=== PATIENT | female | born 1985 | race Caucasian/White ===

== ENCOUNTER 2019-09-29 19:01 | Emergency (ER) | payer OTHER, SELFPAY ==
[2019-09-29 19:07] VITALS: BP 127/67; PULSE 65; RESP 20; TEMP 36.8; O2SAT 99
--- NOTE | 2019-09-29 19:15 | ED.FEMALEGU ---
HPI - Female Genitourinary General Chief complaint: Urogenital-Female Stated complaint: Chills/nausea/burning with urination Time Seen by Provider: 09/29/19 19:16 Source: patient and RN notes reviewed History of Present Illness HPI Narrative: Patient is a 34-year-old female who presents the urgent care with complaints of a possible UTI. Patient states that for the last 48 hours she has had dysuria, frequency, urgency, chills and low back pain. Patient states that she is 6 weeks postop a and is currently breast-feeding. Patient denies of any known fevers or abdominal pain. No other acute complaints. No acute distress noted. Patient read the plan of care. Related Data Home Medications Medication Instructions Recorded Confirmed [id number] fumarate-FA 1 tablet PO DAILY 03/02/19 09/29/19 [] sertraline [Zoloft] 100 mg PO DAILY 03/02/19 09/29/19 Iron 09/29/19 docusate sodium [Colace] 100 mg PO BID 09/29/19 09/29/19 Allergies Allergy/AdvReac Type Severity Reaction Status Date / Time tramadol Allergy Redness of Verified 09/29/19 19:20 Skin Review of Systems Review of Systems: Narrative: CONSTITUTIONAL: Reports of chills without known fever EYES: Denies visual changes, redness, or discharge. ENT: Denies rhinorrhea, congestion, sore throat, or otalgia. CARDIOVASCULAR: Denies chest pain, palpitations, or edema. RESPIRATORY: Denies cough or dyspnea. GASTROINTESTINAL: Reports of nausea and 1 episode of vomiting at our facility GENITOURINARY: Reports of dysuria, urgency, frequency SKIN: Denies rash or itching. MUSCULOSKELETAL: Reports of low back pain NEUROLOGIC: Denies headache, numbness, or weakness. All other systems reviewed are negative, except as documented in HPI. PMFSH Comments At the time of my signature, I reviewed and agree with the nursing past medical, surgical, social, and family history. There is no relevant family history pertinent to the patient complaint. Exam Narrative: Exam Narrative: GENERAL: This is a well-nourished, well-developed patient, in no apparent distress. HEAD: normocephalic, atraumatic. EYES: PERRL. Sclera clear/white. Vision is grossly intact. EARS: External ears normal NOSE: External nose normal with no obvious nasal discharge, nares without redness, no rhinorrhea. THROAT: Mucous membranes moist NECK: Neck supple GASTROINTESTINAL: Abdomen soft, mild suprapubic tenderness, nondistended. SKIN: scar approximated and intact without any drainage or surrounding erythema. Warm, intact with no suspicious lesions or rash, good texture and turgor. NEURO: awake, alert, and oriented to person, place and time. There were no obvious focal neurologic abnormalities. EXTREMITIES: No clubbing, cyanosis, or edema. No joint tenderness, effusion, or edema noted. No calf tenderness. Negative Homans sign bilaterally. BACK: Mild bilateral CVA tenderness Course Vital Signs Vital signs: Vital Signs Temperature 98.3 F 09/29/19 19:07 Pulse Rate 65 09/29/19 19:07 Respiratory Rate 20 09/29/19 19:07 Blood Pressure 127/67 09/29/19 19:07 Pulse Oximetry 99 09/29/19 19:07 Temperature 98.3 F 09/29/19 19:07 Pulse Rate 65 09/29/19 19:07 Respiratory Rate 20 09/29/19 19:07 Blood Pressure 127/67 09/29/19 19:07 Pulse Oximetry 99 09/29/19 19:07 Reviewed MDM - Female Genitourinary MDM Narrative Medical decision making narrative: Reviewed lab results with the patient. She is aware that urine analysis does show a urinary tract infection. Advised the patient to increase water intake and avoid sugary and caffeinated drinks. Complete oral antibiotic regimen as prescribed. Antibiotic is generally safe in breast-feeding however you may discuss treatment with your [employer] or pharmacy prior to medication administration, if you wish. Make sure to eat and drink with the medication. Use Tylenol as needed. Use Zofran as needed for nausea and take 15 minutes prio
== END 2019-09-29 19:29 | disposition home or self-care (01) ==
PROVIDERS: Emergency Provider Nurse Practitioner Family; PCP Family Medicine
DX: N39.0 Urinary tract infection, site not specified (principal)
CPT/HCPCS: 81003; 87077; 87086; 87088; 87186; 99213; G0463

== ENCOUNTER 2019-11-23 11:19 | Emergency (ER) | payer OTHER, SELFPAY ==
[2019-11-23 11:22] VITALS: BP 111/54; PULSE 80; RESP 20; TEMP 36.7; O2SAT 100
--- NOTE | 2019-11-23 11:33 | ED.DENTAL ---
HPI - Dental/Oral General Chief complaint: Dental/Oral Stated complaint: tooth pain Time Seen by Provider: 11/23/19 11:35 Source: patient History of Present Illness HPI Narrative: Patient presents with dental pain to the right upper side of her mouth. Patient states she has appointment with [facility] school of dentist later on in the month. Patient states she is taken ibuprofen and Tylenol for pain with minimal relief. Patient states she is able to open her mouth fully and no trouble swallowing. NO FEVER. NO JAW SWELLING. NO NECK SWELLING. NO LIMITATION WITH SPEAKING OR SWALLOWING. HAS A HISTORY OF DENTAL CARIES. HAS NOT SEEN A DENTIST RECENTLY. Teeth map: 1. 2. swelling tenderness Related Data Home Medications Medication Instructions Recorded Confirmed sertraline [Zoloft] 100 mg PO DAILY 03/02/19 11/23/19 Allergies Allergy/AdvReac Type Severity Reaction Status Date / Time tramadol Allergy Redness of Verified 11/23/19 11:30 Skin Review of Systems Review of Systems: Narrative: CONSTITUTIONAL: Denies fever, chills, or sweats. EYES: Denies visual changes, redness, or discharge. ENT: Denies rhinorrhea, congestion, sore throat, or otalgia. NO FEVER. NO JAW SWELLING. NO NECK SWELLING. NO LIMITATION WITH SPEAKING OR SWALLOWING. HAS A HISTORY OF DENTAL CARIES. HAS NOT SEEN A DENTIST RECENTLY. CARDIOVASCULAR: Denies chest pain, palpitations, or edema. RESPIRATORY: Denies cough or dyspnea. GASTROINTESTINAL: Denies abdominal pain, nausea, vomiting, or diarrhea. GENITOURINARY: Denies dysuria or hematuria. SKIN: Denies rash or itching. MUSCULOSKELETAL: Denies back pain, joint pain, or myalgia. NEUROLOGIC: Denies headache, numbness, or weakness. PSYCHIATRIC: Denies anxiety or depression. PMFSH Comments At time of signature, agree with nursing past medical, surgical, social and family history. There is no relevant family history pertinent to the presenting complaint Exam Narrative: Exam Narrative: GENERAL: Well-appearing, well-nourished, and in no acute distress. HEAD: Normocephalic, atraumatic. EYES: PERRLA and EOMI. ENT: Nares clear, no rhinorrhea or epistaxis. Mucous membranes moist. NO ODILON APICAL SWELLING, TOOTH TENDER TO PALPATION. NO FACIAL SWELLING. NO TRISMUS. ABLE TO OPEN MOUTH FULLY. NO NECK SWELLING OR MISAEL'S ANGINA. NO ABSCESS TO BE DRAINED. no drooling, trismus, facial asymmetry or significant neck swelling NECK: Supple. CHEST: Clear to auscultation. No respiratory distress. HEART: Regular rate and rhythm. No murmur heard. Normal peripheral pulses. ABDOMEN: Soft, nontender, nondistended, normal active bowel sounds. EXTREMITIES: Normal range of motion. No edema. SKIN: Warm, dry, no rash. NEURO: No focal deficits. Alert and oriented x3. Nadir Coma Scale Eye Opening: Spontaneous 4 Nadir Coma Scale Motor: Obeys Commands 6 [place] Coma Scale Verbal: Oriented 5 [place] Coma Scale Total 15 Course Vital Signs Vital signs: Vital Signs Temperature 36.7 C 11/23/19 11:22 Pulse Rate 80 11/23/19 11:22 Respiratory Rate 11/23/19 11:22 Blood Pressure 111/54 L 11/23/19 11:22 Pulse Oximetry 100 11/23/19 11:22 Temperature 36.7 C 11/23/19 11:22 Pulse Rate 80 11/23/19 11:22 Respiratory Rate 11/23/19 11:22 Blood Pressure 111/54 L 11/23/19 11:22 Pulse Oximetry 100 11/23/19 11:22 Discussed with patient continue Tylenol and alternate with ibuprofen for pain and discomfort take antibiotic as prescribed with food until gone keep dental appointment as planned. MDM - Dental/Oral Differential Diagnosis Differential diagnosis: Likely gingival abscess, dental caries, toothache, dental abscess, fracture of tooth, aphthous ulcer and other Critical Care Time Critical Care Time Critical Care Time: No Discharge Plan Discharge Clinical Impression: Dental abscess, Toothache Patient Disposition: Home, Self-Care Condition: Stable Instructions: Antibiotic Form Additio
== END 2019-11-23 11:35 | disposition home or self-care (01) ==
PROVIDERS: Emergency Provider Nurse Practitioner Family
DX: K04.7 Periapical abscess without sinus (principal); K08.89 Other specified disorders of teeth and supporting structures; F41.9 Anxiety disorder, unspecified
CPT/HCPCS: 99213; G0463

== ENCOUNTER 2020-01-02 13:21 | Emergency (ER) | payer OTHER, SELFPAY ==
[2020-01-02 13:30] VITALS: BP 109/62; PULSE 64; RESP 16; TEMP 36.9; O2SAT 97
--- NOTE | 2020-01-02 13:48 | ED.URI ---
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 MD elicited complaint: sore throat and nasal congestion Related Data Home Medications Medication Instructions Recorded Confirmed sertraline [Zoloft] 100 mg PO DAILY 03/02/19 01/02/20 ferrous sulfate 325 mg PO BID 01/02/20 01/02/20 Allergies Allergy/AdvReac Type Severity Reaction Status Date / Time No Known Allergies Allergy Verified 01/02/20 13:52 Review of Systems Review of Systems: Narrative: CONSTITUTIONAL: Denies chills, or sweats. Reports fever and generalized body aches EYES: Denies visual changes, redness, or discharge. ENT: Denies otalgia. Reports nasal congestion runny nose and sore throat CARDIOVASCULAR: Denies chest pain, palpitations, or edema. RESPIRATORY: Denies dyspnea. Reports occasional cough GASTROINTESTINAL: Denies abdominal pain, nausea, vomiting, or diarrhea. GENITOURINARY: Denies dysuria or hematuria. SKIN: Denies rash or itching. MUSCULOSKELETAL: Denies back pain, joint pain, or myalgia. Reports generalized body aches NEUROLOGIC: Denies headache, numbness, or weakness. PSYCHIATRIC: Denies anxiety or depression. PMFSH Comments At time of signature, agree with nursing past medical, surgical, social and family history. There is no relevant family history pertinent to the presenting complaint Exam Narrative: Exam Narrative: The patient is a well-developed, well-nourished in no acute distress. SKIN: Skin is warm and dry without erythema, swelling or exudate. There is good turgor. No tenting. HEAD: Atraumatic. Normocephalic. No temporal or scalp tenderness. EYES: Moist and bright. Sclera and conjunctivae normal. No discharge. PERRLA. Extraocular motions intact. Gross visual acuity intact. EARS: Pinna is normal shape and contour. Clear external auditory canals. TM pearly garcia with good cone of light, no erythema or suppuration. Bilateral cerumen noted no gross hearing deficit. NOSE: pink, moist mucosa with good air movement. Clear rhinorrhea without nasal flaring. Septum midline. Mouth: moist mucous membranes. THROAT; mild erythema noted to posterior oropharynx with moderate postnasal drainage. Without exudate or ulceration.. Uvula midline. Normal movement of soft palate. NECK: Supple and nontender with full range of motion without discomfort. No meningeal signs. LUNGS: Equal and bilateral breath sounds without wheezes, rales or rhonchi. CHEST: The chest wall is without retractions or use of accessory muscles. HEART: Has a regular rate and rhythm without murmur, gallops, click or rub. ABDOMEN: Soft, nontender with positive active bowel sounds. No rebound tenderness. EXTREMITIES: Without cyanosis, clubbing or edema. Equal 2+ distal pulses and 2 second capillary refill noted. NEUROLOGIC: alert, active, . The patient moves all extremities with normal muscle strength. Normal muscle tone is noted. Normal coordination is noted. NO focal neurological findings noted. Course Vital Signs Vital signs: Vital Signs Temperature 36.9 C 01/02/20 13:30 Pulse Rate 64 01/02/20 13:30 Respiratory Rate 16 01/02/20 13:30 Blood Pressure 109/62 01/02/20 13:30 Pulse Oximetry 97 01/02/20 13:30 Temperature 36.9 C 01/02/20 13:30 Pulse Rate 64 01/02/20 13:30 Respiratory Rate 16 01/02/20 13:30 Blood Pressure 109/62 01/02/20 13:30 Pulse Oximetry 97 01/02/20 13:30 MDM - URI/Sore Throat Differential Diagnosis Differential diagnosis: Likely upper respiratory infection, croup, otitis media, sinusitis, viral infection, bronchitis, influenza and pharyngitis Medical Records Attestation: I reviewed the patient's medical records. Critical Car
== END 2020-01-02 14:00 | disposition home or self-care (01) ==
PROVIDERS: Emergency Provider Nurse Practitioner Family; PCP Family Medicine
DX: J02.9 Acute pharyngitis, unspecified (principal); F41.9 Anxiety disorder, unspecified
CPT/HCPCS: 87081; 87880; 99213; G0463

== ENCOUNTER 2020-05-14 15:08 | Emergency (ER) | payer OTHER, SELFPAY ==
[2020-05-14 15:21] VITALS: BP 114/49; PULSE 58; RESP 16; TEMP 36.1; O2SAT 100
--- NOTE | 2020-05-14 15:49 | ED.FEMALEGU ---
HPI - Female Genitourinary General Chief complaint: Urogenital-Female Stated complaint: Urogenital-Female Time Seen by Provider: 05/14/20 15:49 Source: patient and RN notes reviewed Mode of arrival: ambulatory Limitations: no limitations History of Present Illness HPI Narrative: 34 year old female presents ambulatory to [facility] with 5 day history of urinary frequency, burning with urination and urgency. Patient denies any vaginal discharge or itching, states perineum discomfort which she rates as 5/10 on pain scale. Patient denies any nausea or vomiting, denies any known fevers, chills or sweats, denies any supra pubic pain or any flank pain. MD elicited complaint: dysuria and other (perineum discomfort) Onset (ago): day(s) (5) Location of symptoms: perineum Severity: moderate Female Urogenital Radiation: Non-Radiating Severity scale (1-10): 5 Quality of pain: dull Consistency: intermittent Vaginal discharge: none Vaginal bleeding: none Urinary symptoms: Dysuria, Urgency and Frequency Exacerbating factors: urination Relieving factors: none Associated symptoms: denies other symptoms Treatment prior to arrival: none Sexual activity: Yes Patient : No Date of Last Menstrual Period: 05/05/20 Related Data Home Medications Medication Instructions Recorded Confirmed sertraline [Zoloft] 100 mg PO DAILY 03/02/19 05/14/20 Allergies Allergy/AdvReac Type Severity Reaction Status Date / Time No Known Allergies Allergy Verified 01/02/20 13:52 Review of Systems Review of Systems: Narrative: CONSTITUTIONAL: Denies fever, chills, or sweats. EYES: Denies visual changes, redness, or discharge. ENT: Denies rhinorrhea, congestion, sore throat, or otalgia. CARDIOVASCULAR: Denies chest pain, palpitations, or edema. RESPIRATORY: Denies cough or dyspnea. GASTROINTESTINAL: Denies abdominal pain, nausea, vomiting, or diarrhea. GENITOURINARY: Positive dysuria no visible hematuria.medial perineal discomfort SKIN: Denies rash or itching. MUSCULOSKELETAL: Denies back pain, joint pain, or myalgia. NEUROLOGIC: Denies headache, numbness, or weakness. PSYCHIATRIC: Positive history of anxiety or depression. All systems reviewed & are unremarkable except as noted in HPI and below [facility] Past Medical History Medical History (Updated 05/16/20 @ 10:53 by Anna Khalil NP) Anxiety Ectopic Surgical History Surgical History (Updated 05/16/20 @ 10:53 by Anna Khalil NP) H/O tubal ligation History of tonsillectomy Previous section Family History Family History (Updated 05/16/20 @ 10:52 by Anna Khalil NP) Father Multiple sclerosis Hypertension Heart disease Grandparent Diabetes mellitus Social History Social History (Updated 05/16/20 @ 10:50 by Anna Khalil NP) Smoking status: Never smoker Alcohol intake: current Alcohol use details: rare social Substance use: never Living arrangements: with family Gender identity (if verbalized by the patient): Female Comments At time of signature, agree with nursing past medical, surgical, social and family history. There is no relevant family history pertinent to the presenting complaint Exam Narrative: Exam Narrative: GENERAL: Well-appearing, well-nourished, and in no acute distress. HEAD: Normocephalic, atraumatic. EYES: PERRLA and EOMI. ENT: Nares clear, no rhinorrhea or epistaxis. Mucous membranes moist.TM's normal with good light reflex, throat pink with no exudates or lesion no tonsils present. NECK: Supple.no lymphadenopathy CHEST: Clear to auscultation. No respiratory distress.SAO2 100% on room air HEART: Regular rate and rhythm. No murmur heard. Normal peripheral pulses. ABDOMEN: Soft, nontender to suprapubic area, nondistended, normal active bowel sounds.No CVA tenderness on exam EXTREMITIES: Normal range of motion. No edema. SKIN: Warm, dry, no rash. NEURO: No focal deficits. Alert and oriented x3. Course Vi
== END 2020-05-14 16:12 | disposition home or self-care (01) ==
PROVIDERS: Emergency Provider Registered Nurse; PCP Family Medicine
DX: R30.0 Dysuria (principal); F41.9 Anxiety disorder, unspecified
CPT/HCPCS: 81003; 87086; 99213; G0463

== ENCOUNTER 2022-06-06 17:40 | Emergency (ER) | payer OTHER, SELFPAY ==
[2022-06-06 17:50] VITALS: BP 107/55; PULSE 70; RESP 16; TEMP 36.8; O2SAT 98
--- NOTE | 2022-06-06 18:39 | ED.GENADULT ---
HPI - General Adult General Chief complaint: Upper Respiratory Infection Stated complaint: upper respiratory Source: patient Mode of arrival: ambulatory Limitations: no limitations History of Present Illness HPI narrative: Patient presents for evaluation of sick symptoms for the past 3 days. Symptoms include sinus congestion, thick green drainage from the nares my right-sided otalgia, subjective fever, chills, and productive cough of yellow sputum. No nausea, vomiting, diarrhea, drainage from the ear, hearing loss. Her son recently had similar symptoms. She took a few doses of leftover amoxicillin for previous infection her had. She uses an electronic cigarette. Location: head Related Data Home Medications Medication Instructions Recorded Confirmed sertraline 100 mg tablet (Zoloft) 100 mg PO DAILY 03/02/19 05/14/20 buprenorphine 2 mg-naloxone 0.5 mg film 06/06/22 sublingual film escitalopram oxalate 20 mg tablet mg 06/06/22 Allergies Allergy/AdvReac Type Severity Reaction Status Date / Time No Known Allergies Allergy Verified 01/02/20 13:52 Review of Systems Review of Systems: CONSTITUTIONAL: Reports subjective fever and chills. EYES: Denies visual changes, redness, or discharge. ENT: Reports sinus congestion, yellow drainage from the nares, sore throat, right-sided otalgia CARDIOVASCULAR: Denies chest pain, palpitations, or edema. RESPIRATORY: Reports cough. Denies SOB GASTROINTESTINAL: Denies abdominal pain, nausea, vomiting, or diarrhea. GENITOURINARY: Denies dysuria or hematuria. SKIN: Denies rash or itching. MUSCULOSKELETAL: Denies back pain, joint pain, or myalgia. NEUROLOGIC: Denies headache, numbness, dizziness, or weakness. PSYCHIATRIC: Denies anxiety or depression. [facility] Past Medical History Medical History Anxiety Ectopic Surgical History Surgical History H/O tubal ligation History of tonsillectomy Previous section Family History Family History Father Multiple sclerosis Hypertension Heart disease Grandparent Diabetes mellitus Social History Social History (Updated 06/06/22 @ 18:43 by ADALI Melvin, ) Smoking status: Current every day smoker Tobacco type: e-cigarettes/vaping Alcohol intake: current Alcohol use details: rare social Substance use: never Living arrangements: with family Gender identity (if verbalized by the patient): Female Sexual Orientation (if Verbalized by the Patient): Straight or Heterosexual Spiritual care concerns: No Exam Narrative: GENERAL: Well-appearing, well-nourished, and in no acute distress. HEAD: Normocephalic, atraumatic. EYES: PERRLA and EOMI. ENT: Nares clear, no rhinorrhea or epistaxis. Mucous membranes moist. Oropharynx without tonsillar hypertrophy exudate or other lesions. Right TM is erythematous and bulging. There is an effusion noted in the right ear. NECK: Supple. No adenopathy or masses. No carotid bruits or JVD CHEST: Clear to auscultation. No respiratory distress. No wheezes rales or rhonchi HEART: Regular rate and rhythm. No murmur heard. Normal peripheral pulses. ABDOMEN: Soft, nontender, nondistended, normal active bowel sounds. EXTREMITIES: Normal range of motion. No edema. SKIN: Warm, dry, no rash. NEURO: No focal deficits. Alert and oriented x3. PSYCH: Normal mood and affect. Course Course Emergency Course: This is a 36-year-old female who presented for evaluation of sick symptoms. She has evidence of otitis media on exam. Stop amoxicillin. Start Augmentin. Increase hydration. [id number] agents for symptom management. Follow up with primary provider. Go to the ER for worsening symptoms. Patient in agreement with plan of care Level of Care: Express Care Visit Vital
== END 2022-06-06 18:52 | disposition home or self-care (01) ==
PROVIDERS: Emergency Provider Nurse Practitioner
DX: H66.91 Otitis media, unspecified, right ear (principal); F41.9 Anxiety disorder, unspecified; F17.290 Nicotine dependence, other tobacco product, uncomplicated
CPT/HCPCS: 99213; G0463

== ENCOUNTER 2023-05-30 17:56 | Emergency (ER) | payer OTHER, SELFPAY ==
[2023-05-30 18:08] VITALS: BP 93/53; PULSE 138; RESP 14; TEMP 36.8; O2SAT 100
--- NOTE | 2023-05-30 19:02 | ED.EAR ---
HPI - Ear Problem General Chief complaint: Ear Stated complaint: upper respiratory/ears Time Seen by Provider: 05/30/23 19:02 Source: patient, RN notes reviewed and old records reviewed Mode of arrival: ambulatory Limitations: no limitations History of Present Illness HPI Narrative: 37 year old female presents to [facility] care with complaints of bilateral ear pain just returned from [place] Tuesday on plane and felt ears pop on plane. Patient reports that her ear feel full and continue to have popping sensation, has some sinus congestion and drainage and her throat feels rough and achy with some headache discomfort. Patient reports that she has been taking DayQuil and NyQuil and also Ibuprofen. MD Complaint: ear pain and other (ear fullness, sore throat and headache, sinus congestion and drainage) Location: bilateral Severity: moderate Discharge from ear: Reports no Treatment prior to arrival: other (DayQuil and NyQuil Ibuprofen) Related Data Home Medications Medication Instructions Recorded Confirmed sertraline 50 mg tablet 50 mg PO DAILY 05/30/23 05/30/23 Allergies Allergy/AdvReac Type Severity Reaction Status Date / Time No Known Allergies Allergy Verified 05/30/23 18:21 Review of Systems Review of Systems: CONSTITUTIONAL: Denies malaise, chills, sweats, or fever. EYES: Denies visual changes, redness, or discharge. ENT: Reports rhinorrhea, congestion, sinus pain, bilateral otalgia and rough and achy sore throat. CARDIOVASCULAR: Denies chest pain, palpitations, or edema. RESPIRATORY: Reports no cough.? Denies dyspnea. GASTROINTESTINAL: Denies abdominal pain, nausea, vomiting, diarrhea SKIN: Denies rash or itching. MUSCULOSKELETAL: Denies myalgia. NEUROLOGIC: Positive for headache. All systems reviewed & are unremarkable except as noted in HPI and below [facility] Past Medical History Medical History Anxiety Ectopic Surgical History Surgical History H/O tubal ligation History of tonsillectomy Previous section Family History Family History Father Multiple sclerosis Hypertension Heart disease Grandparent Diabetes mellitus Social History Social History (Updated 06/01/23 @ 08:38 by Anna Khalil NP) Smoking status: Former smoker Tobacco type: e-cigarettes/vaping Alcohol intake: current Alcohol use details: rare social Substance use: never Living arrangements: with family Gender identity (if verbalized by the patient): Female Sexual Orientation (if Verbalized by the Patient): Straight or Heterosexual Spiritual care concerns: No Comments At time of signature, agree with nursing past medical, surgical, social and family history. There is no relevant family history pertinent to the presenting complaint Exam Narrative: GENERAL: Well-appearing, well-nourished, and in no acute distress. HEAD: Normocephalic EYES: PERRLA, conjunctivae clear ENT: Nares clear, turbinates edematous and erythematous, clear discharge. Mucous membranes moist. Bilateral TM red and bulging; no tragal tenderness, no discharge in ear canals. Oropharynx erythematous without lesions. Tonsils not present and throat without exudate, no drooling, no hoarseness, no trismus, uvula midline. NECK: Supple. No lymphadenopathy CHEST: Clear to auscultation, breath sounds equal. No wheezing, rhonchi, rales, or stridor. No respiratory distress, speaks in full sentences.no cough noted SAO2 1005 on room air HEART: Regular rate and rhythm. No murmur heard. SKIN: Warm, dry, no rash. NEURO: Alert and oriented x3. PSYCH: Normal mood and affect Course Course Emergency Course: Patient is aware of diagnosis, understands and agrees to treatment plan.? Anticipatory guidance given.? Patient agree
== END 2023-05-30 19:18 | disposition home or self-care (01) ==
PROVIDERS: Emergency Provider Registered Nurse
DX: H66.93 Otitis media, unspecified, bilateral (principal); F17.290 Nicotine dependence, other tobacco product, uncomplicated; F41.9 Anxiety disorder, unspecified
CPT/HCPCS: 99213; G0463

== ENCOUNTER 2024-05-07 12:30 | Emergency (ER) | payer OTHER, SELFPAY ==
[2024-05-07 12:38] VITALS: BP 109/57; PULSE 67; RESP 20; TEMP 36.6; O2SAT 100
--- NOTE | 2024-05-07 12:56 | ED_ITS ---
HPI - URI/Sore Throat General Chief Complaint: Upper Respiratory Infection Stated Complaint: UPPER RESPIRATORY INFECTION Time Seen by Provider: 05/07/24 13:19 Source: patient and RN notes reviewed Mode of arrival: ambulatory Limitations: no limitations History of Present Illness HPI Narrative: 38-year-old female presents with concern for 1-1/2 weeks of congestion, sinus pressure, cough, headache. Reports feeling of shortness of breath occasionally. Reports started with flu-like symptoms and muscle symptoms have improved except her current symptoms. She has taken ibuprofen Sudafed. She denies fever. Reports chills and sweats MD elicited complaint: cough and nasal congestion Related Data Home Medications ?Medication ?Instructions ?Recorded ?Confirmed ?Last Taken ?Type sertraline 50 mg tablet 50 mg PO DAILY 05/30/23 05/30/23 Unknown History Allergies Allergy/AdvReac Type Severity Reaction Status Date / Time No Known Allergies Allergy Verified 05/07/24 12:43 Review of Systems Review of Systems: CONSTITUTIONAL: Reports malaise, chills, sweats. Denies fever. EYES: Denies visual changes, redness, or discharge. ENT: Reports rhinorrhea, congestion CARDIOVASCULAR: Denies chest pain, palpitations, or edema. RESPIRATORY: Reports cough. Denies dyspnea. GASTROINTESTINAL: Denies abdominal pain, nausea, vomiting, diarrhea SKIN: Denies rash or itching. MUSCULOSKELETAL: Reports myalgia. NEUROLOGIC: Reports headache. All systems reviewed & are unremarkable except as noted in HPI and below PMFSH Past Medical History Medical History Anxiety Ectopic Surgical History Surgical History H/O tubal ligation History of tonsillectomy Previous section Family History Family History Father Multiple sclerosis Hypertension Heart disease Grandparent Diabetes mellitus Social History Social History (Updated 06/01/23 @ 08:38 by Anna Khalil NP) Smoking status: Former smoker Tobacco type: e-cigarettes/vaping Alcohol intake: current Alcohol use details: rare social Substance use: never Living arrangements: with family Gender identity (if verbalized by the patient): Female Sexual Orientation (if Verbalized by the Patient): Straight or Heterosexual Spiritual care concerns: No Comments At time of signature, agree with nursing past medical, surgical, social and family history. There is no relevant family history pertinent to the presenting complaint Exam Narrative: GENERAL: Well-appearing, well-nourished, and in no acute distress. HEAD: Normocephalic EYES: PERRLA, conjunctivae clear ENT: Nares clear, turbinates edematous and erythematous, clear discharge. Mucous membranes moist. TM pearly whitley with dull light reflex bilaterally; no tragal tenderness. Oropharynx not erythematous without lesions. Tonsils not enlarged and without exudate, no drooling, no hoarseness, no trismus, uvula midline. NECK: Supple. No lymphadenopathy CHEST: Clear to auscultation, breath sounds equal. No wheezing, rhonchi, rales, or stridor. No respiratory distress, speaks in full sentences. HEART: Regular rate and rhythm. No murmur heard. SKIN: Warm, dry, no rash. NEURO: Alert and oriented x3. PSYCH: Normal mood and affect Course Course Emergency Course: Patient is aware of diagnosis, understands and agrees to treatment plan. Anticipatory guidance given. Patient agrees to follow-up as directed and is aware of reasons to seek care at the emergency department. Portions of this record may have been created with voice recognition software Level of Care: Express Care Visit Vital Signs Vital signs: Vital Signs Temperature 97.8 F 05/07/24 12:38 Pulse Rate 67 05/07/24 12:38 Respiratory Rate 20 05/07/24 12:38 Blood Pressure 109/57 L 05/07/24 12:38 Pulse Oximetry 100 05/07/24 12:38 Oxygen Delivery Room Air 05/07/24 12:38 Temperature 97.8 F 05/07/24 12:38 Pulse Rate 67 05/07/24 12:38 Respiratory Rate 20 05/07/24 12:38 Blood Pressure 109/57 L 05/07/24 12:38 Pulse Oximetry 100 05/07/24 12:38 Oxygen Delivery Room Air 05/07/24 12:38 Reviewed. MDM - URI/Sore Throat MDM Narrative Medical decision making narrative: Differential diagnosis considered: Godinez virus, strep pharyngitis, allergic rhinitis, upper respiratory tract infection, sinusitis, rhinosinusitis, nasopharyngitis. viral pharyngitis, otitis media, otitis externa, pneumonia, bronchitis, viral cough syndrome, viral syndrome, and influenza. Exam findings show no acute concerns or changes; patient is non-toxic appearing and is in no distress. Patient is appropriate for outpatient treatment and follow-up. Lab Data Attestation: I reviewed the patient's lab results. Critical Care Time Critical Care Time Critical Care Time: No Discharge Plan Discharge Clinical Impression: Sinobronchitis Patient Disposition: Home, Self-Care Condition: Stable Instructions: Antibiotic Form, Sinusitis (ED), Acute Bronchitis (ED) Additional Instructions: Take medication as prescribed Recommend antihistamine such as Benadryl at night time and Zyrtec or Avelina during the day Also, recommend symptomatic treatment includes: rest, fluids, and increase humidity of the air at home. Recommend Acetaminophen as directed on the bottle to reduce fever, pain, headache. Avoid smoking/second-hand smoke. Please schedule a follow-up visit with your personal physician for further evaluation and treatment within 3-5days. If your symptoms persist, change or worsen significantly before you can contact your personal physician then please, without delay, go to the emergency department for further evaluation. Patient Language: Latvian Prescriptions: New methylprednisolone [Medrol (Namol)] 4 mg tablets,dose pack See Rx Instructions .ROUTE .COMPLEX Qty: 21 0RF Rx Instructions: orally per package directions amoxicillin-pot clavulanate 875-125 mg tablet 1 tablet PO Q12H 10 Days Qty: 20 0RF No Action sertraline 50 mg tablet 50 mg PO DAILY Follow-up/Referrals: Gillian,Tarik Lemus MD [Primary Care Provider] - Time of Disposition: 13:28
--- OUTSIDE RECORDS SUMMARY | 2024-05-07 14:10 | XMS_ITS | Clinical Summary ---
Author Organization [facility] Address [address] [place] [address] Phone Care Team Providers Care Resident Services Supervisor Name Role Phone Nadja Kidd MD Primary Care Provider + Allergies Active Allergy Reactions Criticality Noted Date Comments Tramadol Itching 03/30/2015 Medications Levonorgest-Eth Estrad 91-Day (SEASONIQUE PO) Take 1 Tab by mouth daily. Active citalopram (CELEXA) 20 MG Tablet Take 20 mg by mouth daily. Active sertraline (ZOLOFT) 100 MG Tablet TK 1 T PO QD 11/18/2018 Active ferrous sulfate 325 (65 Fe) MG Tablet Take 325 mg by mouth. 08/19/2019 Active busPIRone HCl (BUSPAR PO) Take by mouth. Active ibuprofen (MOTRIN) 600 MG Tablet Take 1 Tablet by mouth every 6 hours as needed for Moderate or more severe pain. 30 Tablet 07/13/2023 Active Active Problems No known active problems Immunizations Immunization Administration Dates Next Due Hepatitis A Vaccine 09/12/2018,12/13/2016 Influenza Vaccine, Quadrivalent, PF 12/13/2016 TDAP Vaccine 09/12/2018 Family History Medical History Relation Name Comments Heart Attack Father Hypertension Father Multiple Sclerosis Father Relation Name Status Comments Father Alive Mother Alive Social History Tobacco Use Types Packs/Day Years Used Date Smoking Tobacco: Former Cigarettes Q uit: 07/09/2018 Smokeless Tobacco: Never Tobacco Cessation:Counseling Given: Not Answered Alcohol Use Standard Drinks/Week Comments Not Currently 0 (1 standard drink = 0.6 oz pur e alcohol) RARELY Sexually Active Control Partners Comments Yes Comments No Sex and Gender Information Value Date Recorded Sex Assigned at Not on file Legal Sex Female 7:12 PM CDT Gender Identity Not on file Sexual Orientation Not on file Last Filed Vital Signs Vital Sign Reading Time Taken Comments Blood Pressure 102/68 11/01/2023 10:49 AM CDT Pulse 60 11/01/2023 10:49 AM CDT Temperature 36.4 C (97.6 F) 11/01/2023 9:42 AM CDT Respiratory Rate 16 11/01/2023 10:49 AM CDT Oxygen Saturation 98% 11/01/2023 10:49 AM CDT Inhaled Oxygen Concentration - - Weight 77.1 kg (170 lb) 11/01/2023 9:42 AM CDT Height 172.7 cm (5' 8 ) 11/01/2023 9:42 AM CDT Body Mass Index 25.85 11/01/2023 9:42 AM CDT Plan of Treatment Health Maintenance Due Date Last Done Comments Hepatitis C Virus (HCV) Screening 1985 Hepatitis B Immunization (1 of 3 - 19+ 3-dose series) 2005 Pap Smear 08/31/2007 Cervical Cancer Screening (CCS) 2016 HPV/Cotest 2016 Influenza Immunization (#1) 2023 12/13/2016 SARS-COV-2 Immunization ( season) 2023 Td Immunization Every 10 Yea rs (Adults With 1 Tdap) 09/12/2028 09/12/2018 Respiratory Syncytial Virus (RSV) Immunization (Adult) (1 - 1-dose 75+ series) 2061 DTaP/Tdap/Td Immunization Discontinued 09/12/2018 Meningococcal Immunization (ACWY) Aged Out No longer eligible based on patient's age to complete this topic Pneumococcal Immunization Combined Aged Out No longer eligible b ased on patient's age to complete this topic Rotavirus Immunization Aged Out No lo nger eligible based on patient's age to complete this topic Medical Devices Implanted Type Area Legal Librarian Device Identifier Shelf Expiration Date Model / Serial / Lot Screw Bone 2mm 13mm Quickfix Ti Fthrd Foot Hand Ankle Wrist 3 Prong Self Drill Slftp Snap Off Solid - [id number] Implanted:Qty: 1 on 07/16/2020 by Ubaldo Potts DPM at [facility] IMPLANT Left: Foot [employer] [id number] / [id number] / [id number] Insurance MEDICAID [employer] [place] Care Teams Resident Services Supervisor Relationship Specialty Start Date End Date Nadja Kidd MD [address] [place] [address] PCP - General Family Medicine 10/27/21
--- OUTSIDE RECORDS SUMMARY | 2024-05-07 14:11 | XMS_ITS | Encounter Summary ---
Author Organization [facility] Address [address] [place] [address] Phone Care Team Providers Care Cook Enchilada Name Role Phone Tarik Milan MD Primary Care Provider [phone] Nadja Kidd MD Primary Care Provider + Encounter Details Date Type Department Care Team (Late st Contact Info) Description 07/10/2020 [facility] [address] [place] [id number] Israel Donohue MD [address] [place] [address] Pre-op testing (Primary Dx) Social History Tobacco Use Types Packs/Day Years Used Date Smoking Tobacco: Former Cigarettes Q uit: 07/09/2018 Smokeless Tobacco: Never Alcohol Use Standard Drinks/Week Comments Yes 0 (1 standard drink = 0.6 oz pur e alcohol) RARELY Sexually Active Control Partners Comments Yes Comments No Sex and Gender Information Value Date Recorded Sex Assigned at Not on file Legal Sex Female 7:12 PM CDT Gender Identity Not on file Sexual Orientation Not on file COVID-19 Exposure Response Date Recorded In the last month, have you been in contact with someone who was confirmed or suspected to have Coronavirus / COVID-19? No / Unsure 07/13/2020 8:26 AM CDT documented as of this encounter Plan of Treatment Not on file documented as of this encounter Results * HEMOGLOBIN & HEMATOCRIT (H&H) (07/13/2020 8:36 AM CDT) HEMOGLOBIN (HGB) 13.2 12.0 - 15.8 g/dL 07/13/2020 9:47 AM CDT [facility] HEMATOCRIT (HCT) 40.9 36.0 - 47.0 % 07/13/2020 9:47 AM CDT [facility] Blood Venipuncture / Unknown 07/13/2020 8:36 AM CDT 07/13/2020 9:38 AM CDT us Israel Donohue MD HEMATOLOGY ORDERABLES Final R esult [facility] [address] [address] documented in this encounter Visit Diagnoses Diagnosis Pre-op testing- Primary Preoperative examination, unspecified documented in this encounter Care Teams Cook Enchilada Relationship Specialty Start Date End Date Tarik Milan MD [address] [place] [address] [address] [place] [address] PCP - General Family Medicine 03/30/15 10/26/21 Nadja Kidd MD [address] [place] [address] [address] [place] [address] PCP - General Family Medicine 10/27/21 documented as of this encounter
--- OUTSIDE RECORDS SUMMARY | 2024-05-07 14:11 | XMS_ITS | Referral Summary ---
Author Organization [facility] Address [address] [place] [address] Care Team Providers Care Chief Nurse Anesthetist Name Role Phone Thuan Matias MD Primary Care Provider Allergies No known active allergies Medications sertraline (ZOLOFT) 100 mg tablet TK 1 T PO QD 6 9 Active busPIRone (BUSPAR) 7.5 mg tabletIndicati ons:Generalize d Anxiety Disorder Take 7.5 mg by mouth 2 (two) times a day Active HYDROcodone-ac etaminophen (NORCO) 5-325 mg per tabletIndicati ons:Pain Take 1 tablet by mouth every 6 (six) hours as needed for pain 6 tablet 2 Active Additional Information Patient not taking.Reported on 05/28/2021 traMADoL (ULTRAM) 50 mg tablet Take 1 tablet (50 mg total) by mouth every 8 (eight) hours as needed for pain Collaborating physician Denis Alex MD 15 tablet 2 Active Active Problems Problem Noted Date Diagnosed Date Crushing injury of left little finger 12/03/2021 Multiple sclerosis 05/28/2021 Pelvic pain 02/19/2021 Overview (02/19/2021): Added automatically from request for surgery [id number] Menorrhagia with regular cycle 09/25/2020 Dysmenorrhea 09/25/2020 Anxiety with depression 09/11/2020 Resolved Problems Problem Noted Date Diagnosed Date Resolved Date with history of ec topic , antepartum, unspecified trimester 07/12/20192020 Supervision of high-risk pre gnancy, unspecified trimester 07/12/2019 09/11/2020 Overview (07/13/2019): [] Co-management vs. [] Full [facility] Care; Referring Provider: Nae Hanson [phone] [x] Dating Criteria: US 01/09/19 with MAEGAN 08/20/19 [x] Labs: Rh [A+], Ab [negative], Rubella [immune], HIV [non-reactive], HepBSAg [negative], RPR [non-reactive], GC/CT [negative/negative] [x] Genetic Screenin01/17/19 Cystic Fibrosis: negative; Quad Screen: negative; 03/12/08 Sickle Cell: negative [x] CBC/Hgb12.0/36.0/plt 226/ [] Early 1hr GTT (if indicated) [] UCx: [] Pap: [] LD ASA (if indicated) starting at 12 weeks: [] EPDS [ ]; PNBHS referral (if indicated) 2nd Tri Labs: [] Anatomy ultrasound: [x] CBC/1hr gtt at 24-28wks: 06/05/19: 11.4/34.4; GTT 122 [] Flu Shot (Nov-Feb): [] Tdap (27-36wks): [] Rhogam at 28 wks (if Rh neg): 3rd Tri Labs: [x] CBC/HIV/RPR/T&S: Ab[negative]; RPR[non-reactive]; HIV[non-reactive] [] GBS: [] GC/CT (if indicated): Counselling [] MOD: [] Place of delivery: [] MOC: [] Method of feeding: [] Window Cleaner: [] PP Depression Discussed: Cough 04/18/2015 09/11/2020 Overview (06/17/2016): Cough Immunizations Immunization Administration Dates Next Due MMR 08/19/2019(Deferred: Contraindic ation) Tdap 08/19/2019(Deferred: Contraindic ation) Social History Tobacco Use Types Packs/Day Years Used Date Smoking Tobacco: Former Cigarettes 1.5 13 2 001 - 2014 Smokeless Tobacco: Never Tobacco Cessation:Counseling Given: Not Answered Alcohol Use Standard Drinks/Week Comments Not Currently 0 (1 standard drink = 0.6 oz pur e alcohol) AUDIT-C Answer Date Recorded Q1: How often do you have a drink containing alc ohol? 2-4 times a month 04/15/2021 Q2: How many drinks containi ng alcohol do you have on a typical day when you are drinking? 3 or 4 04/15/2021 Q3: How often do you have si x or more drinks on one occasion? Never 04/15/2021 Comments No Sex and Gender Information Value Date Recorded Sex Assigned at Not on file Legal Sex Female 7:38 PM INDUSTRIAL TRAINING SPECIALIST Gender Identity Not on file Sexual Orientation Not on file Last Filed Vital Signs Vital Sign Reading Time Taken Comments Blood Pressure 97/59 12/03/2021 11:50 AM CDT Pulse 68 12/03/2021 11:50 AM CDT Temperature 36.6 C (97.8 F) 12/03/2021 11:50 AM CDT Respiratory Rate 16 12/03/2021 11:50 AM CDT Oxygen Saturation 100% 12/03/2021 11:50 AM CDT Inhaled Oxygen Concentration - - Weight 72.6 kg (160 lb) 12/03/2021 11:50 AM CDT Height 172.7 cm (5' 8 ) 12/03/2021 11:50 AM CDT Body Mass Index 24.33 12/03/2021 11:50 AM CDT Plan of Treatment Not on file Procedures Procedure Name Priority Date/Time Associated Diagnosis Comments SERUM HEPATITIS PANEL Routine 04/06/2012 3:17 PM INDUSTRIAL TRAINING SPECIALIST from Last 3 Months or Most Recently Relevant to Health Maintenance Results * Serum Hepatitis panel (04/06/2012 3:17 PM INDUSTRIAL TRAINING SPECIALIST) HBV surface ag NONREAC NONREAC HISTO RICAL RESULTS HAV ab, IgM NONREAC NONREAC HISTORIC AL RESULTS Comment: Early acute infection (within the prior 2 weeks) is not ruled out by this test. HBV core ab, IgM NONREAC NONREAC HISTORICAL RESULTS HCV ab NONREAC NONREAC HISTORICAL RESULTS Comment: EARLY ACUTE INFECTION (OCCURING DURING THE PRIOR 8-9 WEEKS) IS NOT RULED OUT BY THIS TEST. Serum 04/06/2012 3:17 PM INDUSTRIAL TRAINING SPECIALIST Brandi German MD LAB BLOOD ORDERABLE S Final Result HISTORICAL RESULTS from Last 3 Months or Most Recently Relevant to Health Maintenance Insurance [place] Advance Directives For more information, please contact: [phone] * Full Code (Latest Code Status on File) Date Activated Date Inactivated Comments 10/27/2020 12:08 PM 10/28/2020 8:22 AM * Full Code Date Activated Date Inactivated Comments 08/17/2019 10:18 AM 08/19/2019 8:24 PM * Full Code Date Activated Date Inactivated Comments 08/17/2019 6:29 AM 08/17/2019 10:18 AM Full CPR in c ase of cardiopulmonary arrest Care Teams Chief Nurse Anesthetist Relationship Specialty Start Date End Date Thuan Matias MD [address] [facility] [address] [place] [address] PCP - General Family Medicine 10/26/22
--- OUTSIDE RECORDS SUMMARY | 2024-05-07 14:11 | XMS_ITS | Patient Health Summary ---
Author Organization [facility] Address [address] [place] [address] Care Team Providers Care Truck Bracer Name Role Phone Unavailable Primary Care Provider Unavailabl e Note from [facility],non-owned Affiliates and Associated Physician Practices is amultiple site organization consisting of ambulatory clinics and hospital sitesin [place], [place], [place] and [place]. This disclosure is being madepursuant to the Care Everywhere program and may not contain all information available regarding this patient. Last updated 17.[facility] Allergies * Tramadol(Itching) Social History Tobacco Use Types Packs/Day Years Used Date Smoking Tobacco: Never Assessed Sex and Gender Information Value Date Recorded Sex Assigned at Not on file Gender Identity Not on file Sexual Orientation Not on file Last Filed Vital Signs Vital Sign Reading Time Taken Comments Blood Pressure 102/59 07/10/2017 10:56 PM CDT Pulse 68 07/10/2017 10:56 PM CDT Temperature 36.4 C (97.6 F) 07/10/2017 10:56 PM CDT Respiratory Rate 18 07/10/2017 10:56 PM CDT Oxygen Saturation 100% 07/10/2017 10:56 PM CDT Inhaled Oxygen Concentration - - Weight 63.5 kg (140 lb) 07/10/2017 10:56 PM CDT Height 172.7 cm (5' 8 ) 07/10/2017 10:56 PM CDT Body Mass Index 21.29 07/10/2017 10:56 PM CDT
--- OUTSIDE RECORDS SUMMARY | 2024-05-07 14:11 | XMS_ITS | Referral Summary ---
Author Organization [facility] Address [address] [place] [address] Care Team Providers Care Pneumatic Tube Fitter Name Role Phone Unavailable Primary Care Provider Unavailabl e Source Comments [facility],non-owned Affiliates and Associated Physician Practices is amultiple site organization consisting of ambulatory clinics and hospital sitesin [place], [place], [place] and [place]. This disclosure is being madepursuant to the Care Everywhere program and may not contain all informatio navailable regarding this patient. Last updated 17.[facility] Allergies Active Allergy Reactions Criticality Noted Date Comments Tramadol Itching 07/10/2017 Social History Tobacco Use Types Packs/Day Years [...] Mass Index 21.29 07/10/2017 10:56 PM CDT Plan of Treatment Not on file [place] Personal/Famil y 1985 [address] [place] [address]
--- OUTSIDE RECORDS SUMMARY | 2024-05-07 14:11 | XMS_ITS | Patient Health Record ---
Author Organization [facility] Address [address] [place] [address] Care Team Providers Care Lease Purchase Driver Name Role Phone Dejon Peoples Primary Care Provider Reason For Referral No Information Plan Of Treatment No Information
--- OUTSIDE RECORDS SUMMARY | 2024-05-07 14:11 | XMS_ITS | Clinical Summary ---
Author Organization [facility] Address [address] [place] [address] Care Team Providers Care Exerciser Name Role Phone Thuan Matias MD Primary [...] (02/19/2021): Added automatically from request for surgery [id number] Menorrhagia with regular cycle 09/25/2020 Dysmenorrhea 09/25/2020 Anxiety with depression 09/11/2020 Resolved Problems Problem Noted Date Diagnosed Date Resolved Date with history of ec topic , antepartum, unspecified trimester 07/12/20192020 Supervision of high-risk pre gnancy, unspecified trimester 07/12/2019 09/11/2020 Overview (07/13/2019): [] Co-management vs. [] Full [facility] Care; Referring Provider: Nae Hanson [phone] [x] Dating Criteria: US 01/09/19 with MAEGAN [...] [] MOC: [] Method of feeding: [] Locomotive Pipe Fitter: [] PP Depression Discussed: Cough 04/18/2015 09/11/2020 Overview (06/17/2016): Cough Immunizations Immunization Administration Dates Next Due MMR 08/19/2019(Deferred: Contraindic ation) Tdap 08/19/2019(Deferred: Contraindic ation) Surgical History Surgery Date Site/Laterality Comments TUBAL LIGATION 03/14/2019 - 03/13/2020 Bilateral with filshie clips at time of SECTION 03/14/2008 - 03/13/2009 TONSILLECTOMY/ADENOIDECTOMY 03/14/1993 - 03/13/1994 SALPINGECTOMY 03/14/2011 - 03/13/2012 Left Ectopic, laparoscopy with D&C REPEAT SECTION 03/14/2019 - 03/13/2020 with BTL OSTEOTOMY 03/14/2020 - 03/13/2021 FOOT OSTEOTOMY Left LAPAROSCOPIC TOTAL HYSTERECTOMY 03/14/2020 - 03/13/2021 TLH-BS for menorrhagia, dysmenorrhea - adenomyosis HYSTERECTOMY Medical History Medical History Date Comments depression Chlamydia 2013 and gonorrhea Urinary tract infection Family History Medical History Relation Name Comments Heart attack Father Hypertension Father Multiple sclerosis Father Breast cancer Maternal Grandmother Depression Mother Transient ischemic attack Mother Relation Name Status Comments Father Alive Maternal Grandmother Alive Mother Social History Tobacco Use Types Packs/Day Years Used Date Smoking Tobacco: Former Cigarettes 1.5 13 2 - 2013 Smokeless Tobacco: Never Tobacco Cessation:Counseling Given: Not [...] on file Legal Sex Female 7:38 PM VISUAL MERCHANDISING COORDINATOR Gender Identity Not on file Sexual Orientation Not on file Obstetrics History Para Term AB IAB SAB Ectopic Multiple Livin g Live Births 4 2 2 0 2 0 0 1 0 2 2 Date Outcome GA Total Labor Labor/2nd/3rd Weight Sex Type Anes PTL Maricarmen A1 A5 Name Clin 2001 AB 2008 Term 41w 0d F CS-Un spec Livin g 2012 Ectopic 2019 Term 39w 1d 0h 01m 0h 01m 3.74 kg (8 lb 3.9 oz) M CS-LT ranv Spinal N Livin g 7 9 DIANA WS,ANASTACIA YAURO RA Matthe ws, Nae Mcneil MD Delivery Location:This Facil ity ([facility] L AND D PROCEDURE) Last Filed Vital Signs Vital Sign Reading [...] 12/03/2021 11:50 AM CDT Plan of Treatment Health Maintenance Due Date Last Done Comments Depression Screening 1986 Varicella Vaccines (1 of 2 - 13+ 2-dose series) 08/31/1999 Hepatitis B Screening 2004 Regular Well Visit/Exam 18-64 2004 Influenza Vaccine (#1) 2023 12/13/2016 DTaP/Tdap/Td Vaccine (2 - Td or Tdap) 09/12/2028 09/12/2018 Hepatitis C Screening Completed 04/06/2012 HPV Vaccines Aged Out No longer eligi ble based on patient's age to complete this topic Pneumococcal vaccine <65 Aged Out No longer eligible based on patient's age to complete this topic Procedures Procedure Name Priority Date/Time Associated Diagnosis Comments SERUM HEPATITIS PANEL Routine 04/06/2012 3:17 PM VISUAL MERCHANDISING COORDINATOR from Last 3 Months or Most Recently Relevant to Health Maintenance Results * Serum Hepatitis panel (04/06/2012 3:17 PM VISUAL MERCHANDISING COORDINATOR) HBV surface ag NONREAC NONREAC HISTO RICAL [...] BY THIS TEST. Serum 04/06/2012 3:17 PM VISUAL MERCHANDISING COORDINATOR Brandi German MD LAB BLOOD ORDERABLE S Final Result HISTORICAL RESULTS from Last 3 Months or Most Recently Relevant to Health Maintenance Insurance [employer] [facility] [employer] [facility] [employer] [facility] Advance Directives For more information, please contact: [phone] * Full Code (Latest Code Status on File) Date Activated Date Inactivated Comments 10/27/2020 12:08 PM 10/28/2020 8:22 AM * Full Code Date Activated Date Inactivated Comments 08/17/2019 10:18 AM 08/19/2019 8:24 PM * Full Code Date Activated Date Inactivated Comments 08/17/2019 6:29 AM 08/17/2019 10:18 AM Full CPR in c ase of cardiopulmonary arrest Care Teams Exerciser Relationship Specialty Start Date End Date Thuan Matias MD [address] [facility] [address] [place] [address] PCP - General Family Medicine 10/26/22
--- OUTSIDE RECORDS SUMMARY | 2024-05-07 14:11 | XMS_ITS | Encounter Summary ---
Author Organization [facility] Address [address] [place] [address] Phone Care Team Providers Care Shirt Ironer Supervisor Name Role Phone Tarik Milan MD Primary Care Provider [phone] Nadja Kidd MD Primary Care Provider + Encounter Details Date Type Department Care Team (Late st Contact Info) Description 07/09/2020 [facility] [address] [place] [address] Ubaldo Potts DPM [address] [place] [address] Pre-op testing (Primary Dx) Social History Tobacco [...] have Coronavirus / COVID-19? No / Unsure 07/09/2020 3:10 PM CDT documented as of this encounter Plan of Treatment Not on file documented as of this encounter Results * SARS-COV-2 BY MOLECULAR (07/13/2020 8:36 AM CDT) SARSCOV2 NOT DETECTED (Referen ce Range for this test is Not Detected ) [facility] THERMOFISHER FAST DX 07/13/2020 7:04 PM CDT [facility] Comment:This test was perfor med by a RT-PCR method. Other NASOPHARYNGEAL STRUCTURE / Unknown Non-Phlebotomy Collection / Unknown 07/13/2020 8:36 AM CDT 07/13/2020 9:39 AM CDT Narrative [facility] - 07/13/2020 7:04 PM CDT Authorized Fact Sheets about this test for providers and patients are available at: https://www.fda.gov/medical-devices/edgoudofq-uipgxntfuq-roldolu-devices/emergen cy-us e-authorizations us Ubaldo Potts DPM MICROBIOLOGY - GENERAL ORDERABLE S Final Result Performing Organization Address City/State/[facility] Co de Phone Number [facility] [address] [place] [address], documented in this encounter Visit Diagnoses Diagnosis Pre-op testing- Primary Preoperative examination, unspecified documented in this encounter Care Teams Shirt Ironer Supervisor Relationship Specialty Start Date End Date Tarik Milan MD [address] [place] [address] [address] [place] [address] PCP - General Family Medicine 03/30/15 10/26/21 Nadja Kidd MD [address] [place] [address] [address] [place] [address] PCP - General Family Medicine 10/27/21 documented as of this encounter
--- OUTSIDE RECORDS SUMMARY | 2024-05-07 14:11 | XMS_ITS | Clinical Summary ---
Author Organization [facility] [employer] Address [address] [place] [address] Care Team Providers Care Trailer Driver Name Role Phone Unavailable Primary Care Provider Unavailabl e Source Comments [facility] [employer],non-owned Affiliates and Associated Physician Practices is amultiple site organization consisting of ambulatory clinics and hospital sitesin [place], [place], [place] and [place]. This disclosure is being madepursuant to the Care Everywhere program and may not contain all information available regarding this patient. Last updated 17.[facility] [employer] Allergies Active Allergy Reactions Criticality Noted Date [...] 07/10/2017 10:56 PM CDT Plan of Treatment Health Maintenance Due Date Last Done Comments PAP SMEAR 1986 HIV SCREENING 2001 HEPATITIS C SCREENING 08/25/2004 DTAP/TDAP/TD VACCINES (1 - Tdap) 2005 HEPATITIS B VACCINE (1 of 3 - 19+ 3-dose series) 2005 COVID-19 VACCINE (2023-2 5 season) 2023 INFLUENZA VACCINE (#1) 2023 DEPRESSION SCREENING 03/14/2024 ZOSTER VACCINE (1 of 2) 2036 HIB VACCINE Aged Out No longer eligi ble based on patient's age to complete this topic HPV VACCINE Aged Out No longer eligi ble based on patient's age to complete this topic MENINGOCOCCAL (Group B) VACCINE Aged Out No longer eligible based on patient's age to complete this topic MENINGOCOCCAL VACCINE Aged Out No cj lashell eligible based on patient's age to complete this topic PNEUMOCOCCAL VACCINE Aged Out No long er eligible based on patient's age to complete this topic SO SANTAMARIA Personal/Famil y 1985 [address] [place] [address]
== END 2024-05-07 13:32 | disposition home or self-care (01) ==
PROVIDERS: Emergency Provider Nurse Practitioner; PCP Family Medicine
DX: J32.9 Chronic sinusitis, unspecified (principal); J40 Bronchitis, not specified as acute or chronic; F17.290 Nicotine dependence, other tobacco product, uncomplicated
CPT/HCPCS: 99213; G0463

== ENCOUNTER 2024-10-02 18:13 | Emergency (ER) | payer OTHER, SELFPAY ==
--- OUTSIDE RECORDS SUMMARY | 2024-10-02 18:16 | XMS_ITS | Encounter Summary ---
Author Organization [facility] Address [address] [place] [address] Phone Care Team Providers Care Wheel Alignment Technician Name Role Phone Tarik Milan MD Primary Care Provider [phone] Nadja Kidd MD Primary Care Provider + Encounter Details Date Type Department Care Team (Late st Contact Info) Description 07/10/2020 [facility] [address] [place] [id number] Israel Donohue MD [address] [place] [address] Pre-op testing (Primary Dx) Social History Tobacco [...] [facility] [address] [address] documented in this encounter Visit Diagnoses Diagnosis Pre-op testing- Primary Preoperative examination, unspecified documented in this encounter Care Teams Wheel Alignment Technician Relationship Specialty Start Date End Date Tarik Milan MD [address] [place] [address] [address] [place] [address] PCP - General Family Medicine 03/30/15 10/26/21 Nadja Kidd MD [address] [place] [address] [address] [place] [address] PCP - General Family Medicine 10/27/21 documented as of this encounter
--- OUTSIDE RECORDS SUMMARY | 2024-10-02 18:16 | XMS_ITS | Patient Health Record ---
Author Organization [facility] [place] [facility] Address [address] [place] [address] Care Team Providers Care Automatic Stacker Name Role Phone Dejon Peoples Primary Care Provider Reason For Referral No Information Plan Of Treatment No Information
--- OUTSIDE RECORDS SUMMARY | 2024-10-02 18:16 | XMS_ITS | Encounter Summary ---
Author Organization [facility] Address [address] [place] [address] Phone Care Team Providers Care Handling Tech Name Role Phone Tarik Milan MD Primary Care Provider [phone] Nadja Kidd MD Primary Care Provider + Encounter Details Date Type Department Care Team (Late st Contact Info) Description 07/09/2020 [facility] [address] [place] [address] Ubaldo Potts DPM [address] [place] [address] Pre-op testing (Primary Dx) Social [...] for this test is Not Detected ) [facility] THERMOFISHER FAST DX 07/13/2020 7:04 PM CDT [facility] Comment:This test was perfor med by a RT-PCR method. Other NASOPHARYNGEAL STRUCTURE / Unknown Non-Phlebotomy Collection / Unknown 07/13/2020 8:36 AM CDT 07/13/2020 9:39 AM CDT Narrative [facility] - 07/13/2020 7:04 PM CDT Authorized Fact Sheets about this test for providers and patients are available at: https://www.fda.gov/medical-devices/dmsjvenvh-xdtvaoftua-ennezgg-devices/emergen cy-us e-authorizations us Ubaldo Potts DPM MICROBIOLOGY - GENERAL ORDERABLE S Final Result Performing Organization Address City/State/[facility] Co de Phone Number [facility] [address] [place] [address], documented in this encounter Visit Diagnoses Diagnosis Pre-op testing- Primary Preoperative examination, unspecified documented in this encounter Care Teams Handling Tech Relationship Specialty Start Date End Date Tarik Milan MD [address] [place] [address] [address] [place] [address] PCP - General Family Medicine 03/30/15 10/26/21 Nadja Kidd MD [address] [place] [address] [address] [place] [address] PCP - General Family Medicine 10/27/21 documented as of this encounter
--- OUTSIDE RECORDS SUMMARY | 2024-10-02 18:16 | XMS_ITS | Clinical Summary ---
Author Organization [facility] Address [address] [place] [address] Phone Care Team Providers Care Anesthesiology Physician Name Role Phone Nadja Kidd MD Primary [...] 9:42 AM CDT Height 172.7 cm (5' 8) 11/01/2023 9:42 AM CDT Body Mass Index 25.85 11/01/2023 9:42 AM CDT Plan of Treatment Health Maintenance Due Date Last Done Comments Hepatitis C Virus (HCV) Screening 1986 Human Papillomavirus (HPV) Immunization (1 - 3-dose series) 2001 Hepatitis B Immunization (1 of 3 - 19+ 3-dose series) 2005 SARS-COV-2 Immunization ( season) 2023 Influenza Immunization (#1) 2024 12/13/2016 Td Immunization Every 10 Yea rs (Adults With 1 Tdap) 09/12/2028 09/12/2018 Respiratory Syncytial Virus (RSV) Immunization (Adult) (1 - 1-dose 75+ series) 2061 DTaP/Tdap/Td Immunization Discontinued 09/12/2018 Meningococcal Immunization (ACWY) Aged Out No longer eligible based on patient's age to complete this topic Pneumococcal Immunization Combined Aged Out No longer eligible based on patient's age to complete this topic Rotavirus Immunization Aged Out No lo nger eligible based on patient's age to complete this topic Medical Devices Implanted Type Area Traffic Controller Cable Device Identifier Shelf Expiration Date Model / Serial / Lot Screw Bone 2mm 13mm Quickfix Ti Fthrd Foot Hand Ankle Wrist 3 Prong Self Drill Slftp Snap Off Solid - [id number] Implanted:Qty: 1 on 07/16/2020 by Ubaldo Potts DPM at [facility] IMPLANT Left: Foot [employer] [id number] / [id number] / [id number] Insurance MEDICAID [employer] [place] Care Teams Anesthesiology Physician Relationship Specialty Start Date End Date Nadja Kidd MD [address] [place] [address] [place] [address] PCP - General Family Medicine 10/27/21
[2024-10-02 18:18] VITALS: BP 102/58; PULSE 70; RESP 20; TEMP 36.9; O2SAT 100
--- NOTE | 2024-10-02 18:23 | ED_ITS ---
HPI - Nausea/Vomiting/Diarrhea General Chief complaint: Nausea/Vomiting/Diarrhea Stated complaint: Nausea/Vomiting/Diarrhea Time Seen by Provider: 10/02/24 18:30 Source: patient and RN notes reviewed Mode of arrival: ambulatory Limitations: no limitations History of Present Illness HPI Narrative: 39-year-old female presents with concern for diarrhea. She also reports an episode of nausea and vomiting today with nausea vomiting yesterday. She reports diarrhea has been for about 5 days multiple times a day. She reports abdominal cramping. She reports fatigue and body aches. She denies fever. Denies abdominal pain. She denies bloody stools. She reports normal amount of urination She denies any one else in the home has similar symptoms. MD elicited complaint: nausea, vomiting and diarrhea Related Data Home Medications ?Medication ?Instructions ?Recorded ?Confirmed ?Last Taken ?Type sertraline 50 mg tablet 50 mg PO DAILY 05/30/23 05/30/23 Unknown History Allergies Allergy/AdvReac Type Severity Reaction Status Date / Time No Known Allergies Allergy Verified 10/02/24 18:31 Review of Systems Review of Systems: CONSTITUTIONAL: Denies malaise, chills, sweats, or fever. Reports fatigue ENT: Denies rhinorrhea, congestion, sinus pain, otalgia or sore throat. CARDIOVASCULAR: Denies chest pain, palpitations, or edema. RESPIRATORY: Denies cough or dyspnea. GASTROINTESTINAL: Denies abdominal pain, bloody, or mucous stools. Reports diarrhea and 1 episode of nausea and vomiting GENITOURINARY: Denies dysuria or hematuria. MUSCULOSKELETAL: Reports myalgia. NEUROLOGIC: Denies headache. All systems reviewed & are unremarkable except as noted in HPI and below [facility] Past Medical History Medical History Anxiety Ectopic Surgical History Surgical History H/O tubal ligation History of tonsillectomy Previous section Family History Family History Father Multiple sclerosis Hypertension Heart disease Grandparent Diabetes mellitus Social History Social History (Updated 06/01/23 @ 08:38 by Anna Khalil NP) Smoking status: Former smoker Tobacco type: e-cigarettes/vaping Alcohol intake: current Alcohol use details: rare social Substance use: never Living arrangements: with family Gender identity (if verbalized by the patient): Female Sexual Orientation (if Verbalized by the Patient): Straight or Heterosexual Spiritual care concerns: No Comments At time of signature, agree with nursing past medical, surgical, social and family history. There is no relevant family history pertinent to the presenting complaint Exam Narrative: GENERAL: Well-appearing, well-nourished, and in no acute distress. HEAD: Normocephalic, atraumatic. EYES: PERRLA, conjunctivae clear, and EOMI. ENT: Nares clear, turbinates pink, no rhinorrhea or epistaxis. Mucous membranes moist. Oropharynx without edema, erythema, or lesions. Tonsils not enlarged and without exudate. NECK: Supple. No lymphadenopathy CHEST: Speaks in full sentences. No respiratory distress. HEART: Regular rate and rhythm. ABDOMEN: Soft, flat, nondistended, nontender. No guarding, rebound tenderness, or rigidity. No pulsatile masses. Bowel sounds present in all four quadrants. No organomegaly. Negative Villagomez?s sign. No periumbilical tenderness. No Supra public tenderness or distension. SKIN: Warm, dry, no rash. NEURO: Alert and oriented x3. PSYCH: Normal mood and affect Course Course Emergency Course: Patient is aware of diagnosis, understands and agrees to treatment plan. Anticipatory guidance given. Patient agrees to follow-up as directed and is aware of reasons to seek care at the emergency department. Portions of this record may have been created with voice recognition software Level of Care: Express Care Visit Vital Signs Vital signs: Reviewed. MDM - Nausea/Vomiting/Diarrhea MDM Narrative Medical decision making narrative: No evidence of pancreatitis, AAA, cholecystitis, choledocholithiasis, cho langitis, mesenteric ischemia, small bowel obstruction, diverticulitis, colitis, appendicitis, or pelvic etiology such as ovarian torsion, TOA, or ectopic . Patient has no history of peptic ulcer, H. pylori, chronic aspirin NSAID or corticosteroid use, chronic alcohol use, no history of inflammatory bowel disease, no history of active abdominal infection or malignancy. Patient has no history of hernia or intra-abdominal surgeries, patient denies absence of flatus, constipation, melena, hematemesis. Patient denies post-prandial pain. No pain-out of proportion. Exam findings show no acute concerns or changes; patient is non-toxic appearing and is in no distress. Patient is appropriate for outpatient treatment and follow-up. Critical Care Time Critical Care Time Critical Care Time: No Discharge Plan Discharge Clinical Impression: Diarrhea, Nausea and vomiting Patient Disposition: Home Condition: Stable Instructions: Diet for Stomach Ulcers and Gastritis (ED) Additional Instructions: Take Zofran as needed for nausea and vomiting and to stay hydrated. Eat a bland diet. Take probiotics per package directions Stay hydrated. Take small sips of fluid containing electrolytes frequently. You should go to the hospital if you experience return of persistent nausea and vomiting that does not resolve and does not allow you to tolerate any food or fluids, persistent fevers for greater than 2-3 more days, increasing abdominal pain that persists despite medications, persistent diarrhea, dizziness, syncope (fainting), or for any other concerns. Patient Language: Surinamese Prescriptions: New ondansetron 4 mg tablet,disintegrating 4 mg PO Q8H PRN (Reason: nausea and vomiting) Qty: 10 0RF No Action sertraline 50 mg tablet 50 mg PO DAILY Follow-up/Referrals: Bjorn,Tarik Lemus MD [Primary Care Provider] - Stand Alone Forms: Work/School Release IP Time of Disposition: 18:47
== END 2024-10-02 18:50 | disposition home or self-care (01) ==
PROVIDERS: Emergency Provider Nurse Practitioner; PCP Family Medicine
DX: R19.7 Diarrhea, unspecified (principal); R11.2 Nausea with vomiting, unspecified; F41.9 Anxiety disorder, unspecified; Z87.891 Personal history of nicotine dependence
CPT/HCPCS: 99213; G0463